=== PATIENT | male | born 1950 | race Caucasian/White ===

== ENCOUNTER 2020-03-06 18:11 | Emergency (ER) | payer MEDICARE, OTHER ==
[~2020-03-06] VITALS: Ht 177.8 cm; Wt 115.0 kg
--- NOTE | 2020-03-06 18:25 | NUR ---
LATE ENTRY DUE TO PATIENT CARE: PATIENT BIB [facility] WITH CHIEF C/O ABD PAIN AND CONSTIPATION X15 HOURS. PATIENT REPORTS DRY HEAVING, NO ACTUALLY VOMITTING. PATIENT STATES LAST BM WAS 17 HOURS AGO. 18 GAUGE IV STARTED EN ROUTE AND 100 MCG OF FENTANYL GIVEN EN ROUTE. VITALS STABLE PER EMS. NADN, PATIENT'S ABD IS DISTENDED BUT SOFT, CALL LIGHT WITHIN REACH.
--- NOTE | 2020-03-06 18:53 | NUR ---
PATIENT TO IMAGING.
[2020-03-06] MEDS ORDERED: MAALOX/HYOSCYAMINE/LIDOCAINE 45 ML BTL PO ONE (19:00)
[2020-03-06] MEDS ORDERED: MAALOX/HYOSCYAMINE/LIDOCAINE 45 ML BTL ONE (19:10)
[2020-03-06] MEDS ORDERED: SODIUM CHLORIDE FLUSH 10ML SYR IVF ONE (19:30)
--- NOTE | 2020-03-06 19:43 | NUR ---
PATIENT ASSISTED TO POC, PROVIDED PILLOW AND WARM BLANKET. CALL SEWELL WITHIN REACH, NAD, VSS WILL CONTINUE TO MONITOR.
[2020-03-06 20:15] LABS: BASOPHILS % (AUTO) 0 % (0-1); EOSINOPHILS % (AUTO) 0 % (1-7); LYMPHOCYTES % (AUTO) 11 % (22-44); MEAN CORPUSCULAR HGB CONC 34.3 g/dL (33.2-36.2); MEAN PLATELET VOLUME 8.3 fL (7.4-10.4); MONOCYTES % (AUTO) 3 % (2-9); NEUTROPHILS % (AUTO) 85 % (42-75); PLATELET COUNT 194 x10^3/uL (130-400); RED BLOOD COUNT 5.83 x10^6/uL (4.38-5.82); RED CELL DISTRIBUTION WIDTH 13.2 % (9.4-14.8)
[2020-03-06 20:19] LABS: ALANINE AMINOTRANSFERASE 36 U/L (12-78); ALBUMIN 4.2 g/dL (3.4-5.0); ANION GAP 7 mmol/L (5-15); CHLORIDE 103 mmol/L (98-107); CREATININE 1.42 mg/dL (0.7-1.3)
[2020-03-06 20:21] LABS: ALKALINE PHOSPHATASE 64 U/L (45-117); BILIRUBIN,TOTAL 0.8 mg/dL (0.2-1.0); TOTAL PROTEIN 8.2 g/dL (6.4-8.2)
--- NOTE | 2020-03-06 20:37 | NUR ---
PATIENT RESTING IN GURNEY WITH EYES CLOSED, RESP EVEN AND UNLABORED, NADN, VSS, SIDE RAILS UP X2, CALL LIGHT WITHIN REACH.
[2020-03-06 20:38] LABS: MD SCAN
--- NOTE | 2020-03-06 20:42 | NUR ---
PATIENT TO IMAGING.
--- NOTE | 2020-03-06 21:04 | NUR ---
PATIENT BACK FROM CT SCAN, NADN, VSS, WARM BLANKET PROVIDED, CALL LIGHT WITHIN REACH.
[2020-03-06] MEDS ORDERED: METOCLOPRAMIDE 5 MG/ML, 2ML ONE (21:14)
--- NOTE | 2020-03-06 21:21 | NUR ---
ERMD AT BEDSIDE TO DISCUSS POC.
[2020-03-06] MEDS ORDERED: OMNIPAQUE 350 MG/ML, 100ML BOTTLE ONE (21:28)
[2020-03-06] MEDS ORDERED: METOCLOPRAMIDE 5 MG/ML, 2ML IVPush ONE (21:30)
--- NOTE | 2020-03-06 21:57 | NUR ---
PATIENT MEDICATED PER [facility], NG TUBE PLACED IN LEFT NARE, PATIENT TOLERATED WELL. PLACEMENT CHECKED THROUGH AUSCULTATION. STAT CHEST X-RAY ORDERED TO VERIFY PLACEMENT BEFORE SUCTION STARTED.
--- NOTE | 2020-03-06 23:48 | NUR ---
REPORT FROM BOUCHRA ARELLANO ASSUMING CARE OF PT AT THIS TIME. POC IS PT TO BE DC HOME AFTER NG TUBE EMPTIES STOMACH
--- NOTE | 2020-03-06 23:58 | NUR ---
PT STS HE FEELS BETTER AND IS READY TO GO HOME. ERP TO BE UPDATED
[2020-03-07 00:08] VITALS: BP 133/84
--- NOTE | 2020-03-07 00:09 | NUR ---
NG TUBE REMOVED. 410ML GASTRIC CONTENTS IN SUCITON CANISTER AT THIS TIME. PT DRESSING SELF AND STS WILL CALL [facility] FOR SAFE TRANSFER HOME.
--- NOTE | 2020-03-07 00:24 | NUR ---
Patient given discharge instructions and they have confirmed that they understand the instructions. Patient stable and ambulatory with steady gait from ED to taxi.
== END 2020-03-07 00:29 | disposition home or self-care (01) ==
LOC: ED 19:15
DX: E11.43 Type 2 diabetes mellitus with diabetic autonomic (poly)neuropathy (principal); K31.84 Gastroparesis; R10.84 Generalized abdominal pain; Z87.891 Personal history of nicotine dependence
CPT/HCPCS: 36415; 74018; 74021; 74177; 80053; 83690; 85025; 96374; 99285; J2765; Q9967

== ENCOUNTER → 2020-05-27 | Outpatient (CLI) | payer MEDICARE ==
[~2020-05-27] MED LIST: ALPH300C PO; ASCO100018 PO; ATOR20TA37 PO; B CO1TAB14 PO; CHOL10003 PO; CYAN100028 PO; DOCU100T3 PO; KRIL1CAP31 PO; LOSA1TAB22 PO; METH750T87 PO; OXYC30TA66 PO; TAUR500C PO; UBID100C41 PO; [UNRECOGNIZED DRUG - OTHER] PO
[2020-05-27 13:25] LABS: BASOPHILS % (AUTO) 1 % (0-1); EOSINOPHILS % (AUTO) 3 % (1-7); LYMPHOCYTES % (AUTO) 35 % (22-44); MEAN CORPUSCULAR HEMOGLOBIN 31.1 pg (27.5-34.5); MEAN CORPUSCULAR HGB CONC 34.4 g/dL (33.2-36.2); MEAN PLATELET VOLUME 7.8 fL (7.4-10.4); MONOCYTES % (AUTO) 8 % (2-9); NEUTROPHILS % (AUTO) 53 % (42-75); PLATELET COUNT 195 x10^3/uL (130-400); RED BLOOD COUNT 4.98 x10^6/uL (4.38-5.82); RED CELL DISTRIBUTION WIDTH 13.7 % (9.4-14.8)
[2020-05-27 13:32] LABS: MD NO
[2020-05-27 13:34] LABS: ALANINE AMINOTRANSFERASE 43 U/L (12-78); ALBUMIN 3.8 g/dL (3.4-5.0); ANION GAP 5 mmol/L (5-15); CALCIUM 8.9 mg/dL (8.5-10.1); CHLORIDE 108 mmol/L (98-107); CREATININE 1.24 mg/dL (0.7-1.3)
[2020-05-27 13:36] LABS: ALKALINE PHOSPHATASE 54 U/L (45-117); BILIRUBIN,TOTAL 0.5 mg/dL (0.2-1.0); TOTAL PROTEIN 7.5 g/dL (6.4-8.2)
== END | disposition home or self-care (01) ==
LOC: STAR 12:24
PROVIDERS: ATTEND Orthopaedic Surgery
DX: Z01.810 Encounter for preprocedural cardiovascular examination (principal); Z01.818 Encounter for other preprocedural examination; M25.562 Pain in left knee; M17.12 Unilateral primary osteoarthritis, left knee; Z20.822 Contact with and (suspected) exposure to COVID-19
CPT/HCPCS: 36415; 80053; 85025; 87081; 93005; U0003